=== PATIENT | male | born 1990 | race African-American/Black ===

== ENCOUNTER 2021-09-25 16:05 | Emergency (ER) | payer SELFPAY ==
[~2021-09-25] VITALS: Ht 172.7 cm; Wt 88.0 kg
[2021-09-25 16:19] VITALS: BP 134/84
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
[2021-09-25] MEDS ORDERED: IV NORMAL SALINE 1,000ML 1,000 ML IV ONE (16:45)
[2021-09-25] MEDS ORDERED: IOHEXOL 300 MG/ML 75 ML VIAL. IV ONE (16:45)
[2021-09-25] MEDS ORDERED: CONTRAST GIVEN. MC PRN (17:00)
[2021-09-25 17:43] LABS: BASO % 0 % (0-3); EOS # 0.1 x10^3/uL (0.0-0.7); EOS % 1 % (0-3); HEMATOCRIT 44.9 % (39.0-53.0); HEMOGLOBIN 14.8 g/dL (13.0-17.5); LYMPH # 1.1 x10^3/uL (1.0-4.8); LYMPH % 12 % (24-48); MEAN CORPUSCULAR HEMOGLOBIN 29 pg (25-35); MEAN CORPUSCULAR HGB CONC 33 g/dL (31-37); MEAN CORPUSCULAR VOLUME 89 fL (79-100); MONO # 0.4 x10^3/uL (0.0-1.1); MONO % 5 % (0-9); NEUT # 7.5 x10^3uL (1.8-7.7); NEUT % 83 % (31-73); PLATELET COUNT 290 x10^3/uL (140-400); RED BLOOD COUNT 5.06 x10^6/uL (4.30-5.70); RED CELL DISTRIBUTION WIDTH 14.1 % (11.5-14.5); WHITE BLOOD COUNT 9.1 x10^3/uL (4.0-11.0)
--- NOTE | 2021-09-25 17:43 | RAD ---
EXAM: CT Abdomen and Pelvis with IV contrast CLINICAL HISTORY: Reason: right inguinal mass, pain for 2 years, worse today.75mls omni 300 / Spl. In structions: / History: . COMPARISON: none TECHNIQUE: Helical CT of the abdomen and pelvis was performed following the administration of intrave nous contrast. Axial, coronal and sagittal reformatted images were generated. PQRS compliance statement - One or more of the following individualized dose reduction techniques wer e utilized for this study: 1. Automated exposure control 2. Adjustment of the mA and/or kV according to patient size 3. Use of iterative reconstruction technique FINDINGS: Lower Chest: Visualized lung bases are without acute process. Abdomen and Pelvis: The liver, decompressed gallbladder, spleen, adrenals, and pancreas are unremarkable. There is a smal l splenule adjacent to the spleen. Normal parenchymal enhancement of bilateral kidneys. No nephrolith iasis or hydronephrosis. Stomach is mildly distended with likely ingested material. No evidence of obstruction or acute inflam matory process within the small and large bowel. Appendix is normal. There is a large right inguinal hernia containing multiple fluid distended loops of small bowel extending into the scrotum measuring up to 3 cm in maximal diameter. No current imaging findings to suggest strangulation. There is a smal l amount of simple appearing fluid within the scrotum, likely reactive. No pathologically enlarged abdominal or pelvic lymph nodes. No intra-abdominal free air or significan t free fluid. Vasculature appears normal in course and caliber. Bladder is mildly decompressed. Prostate gland is within normal limits. Abdominal wall is unremarkable. No acute or suspicious osseous abnormalities. IMPRESSION: 1. Large right inguinal hernia containing multiple fluid distended loops of small bowel with no defin ite evidence to suggest strangulation or mechanical obstruction at this time. 2. Other chronic/incidental findings, as above. Electronically signed by: Jorge Cardoso DO (09/25/2021 5:41 PM) [facility]
== END 2021-09-25 19:01 | disposition home or self-care (01) ==
LOC: ER 16:05
DX: K40.90 Unilateral inguinal hernia, without obstruction or gangrene, not specified as recurrent (principal)
CPT/HCPCS: 36415; 74177; 85025; 96361; 96374; 99284; J3010; J7030; Q9967